=== PATIENT | female | born 1950 | race Caucasian/White ===

== ENCOUNTER → 2016-12-21 | Outpatient (CLI) | payer OTHER | LOC: RAD 03:02 | DX: Z12.31 Encounter for screening mammogram for malignant neoplasm of breast (principal) ==

== ENCOUNTER → 2018-02-11 | Outpatient (CLI) | payer OTHER | LOC: RAD 01:14 | DX: Z12.31 Encounter for screening mammogram for malignant neoplasm of breast (principal) ==

== ENCOUNTER → 2018-07-12 | Outpatient (CLI) | payer OTHER ==
[~2018-07-12] VITALS: Ht 157.5 cm; Wt 72.6 kg
[~2018-07-12] MED LIST: ADDERALL 30 MG30 MG PO; ASPIRIN325 PO; FIBER500 MG PO; LORAZEPAM 0.50.5 M1 PO; ROBITUSSIN100 MG/53 PO; WELLBUTRIN XL150 MG PO
--- NOTE | ~2018-07-12 | P ---
[facility] [place] [address] PROCEDURE REPORT Name: JONES GONZALEZ Room #: REG [facility].#: [id number] Admission: 07/12/18 ������������������ Attend Phys: Derrick Talley Discharge: ������������������ Date of : 48 Report #: [id number] THIS REPORT FOR: //name// CC: Derrick Lira MD DATE OF SERVICE: 07/12/2018 PROCEDURE PERFORMED: Colonoscopy with polypectomies. HISTORY OF PRESENT ILLNESS: The patient is a 68-year-old female with a history of colon polyps, last colonoscopy in 2013. She also has a family history of colon cancer. Denies any symptoms other than mild constipation at times. DESCRIPTION OF PROCEDURE: The risks and benefits of the procedure were explained to the patient, those risks including but not limited to bleeding, perforation and the risk of sedation. She understood these risks and gave informed consent. Sedation was given using propofol per anesthesia. Next, a digital rectal exam was initially performed, which showed small external hemorrhoids, otherwise normal. Next, using a standard Olympus colonoscope, the scope was placed in the patient's anus and advanced under direct vision to the cecum. The overall prep was excellent. In the cecum, there was a 3-mm sessile polyp. This was removed with cold forceps, otherwise normal. The ileocecal valve was normal. The terminal ileum was intubated and normal in appearance. In the ascending colon, there were two sessile polyps. These ranged from 6-8 mm, both removed by snare cautery. In the transverse colon, there were a total of 3 polyps, also removed by snare cautery. These ranged from 6 mm to 1.2 cm. In the descending colon, a 5-mm sessile polyp, also removed by snare cautery. Sigmoid colon, another 5-mm sessile polyp removed by snare cautery. Several diverticula were noted throughout the sigmoid colon. No evidence of inflammation. The rectal mucosa was normal. On retroflexion, small nonbleeding internal hemorrhoids were noted. The scope was then withdrawn and the procedure terminated. The patient tolerated the procedure well. IMPRESSION: 1. Multiple colonic polyps as described above. 2. Sigmoid diverticulosis. 3. Internal and external hemorrhoids. 4. Otherwise, normal colonoscopy. RECOMMENDATIONS: 1. Await biopsy results. 2. Repeat colonoscopy in 3 years due to the number of polyps and family history [address] [address] PROCEDURE REPORT Name: GONZALEZJONES Room #: REG CLKevin Gerardo#: [id number] Admission: 07/12/18 ������������������ Attend Phys: Derrick Talley Discharge: ������������������ Date of : 48 Report #: [id number] of colon cancer. Thank you for allowing me to participate in her care. ��������������������������������������������� ���������������������������������������� By: ��������������������������������������������� [id number] Derrick Cai MD /radha
--- NOTE | 2018-07-16 13:14 | PATH ---
[facility] [place] [address] PATHOLOGY RPT PROCEDURE Name: CARLOSDANA CULLEN Room #: REG [facility] M.R.#: [id number] ������������������ Admission: 07/12/18 ������������������ Date of : 48 Discharge: Report #: [id number] Path Case #: [id number] [facility] Accession Number: [id number] . 01 Material submitted: . PART A: TRANSVERSE POLYP X3 PART B: CECAL POLYP PART C: ASCENDING POLYP X2 PART D: DESCENDING COLON POLYP PART E: SIGMOID COLON POLYP . 01 Clinical history: . Hx of polyps, Hx of colon cancer . 02 Diagnosis: A. Polyps x3, endoscopic biopsy: - All fragments sampled showing hyperplastic polyps. - Negative for dysplasia. . B. Polyp, cecal polyp, endoscopic biopsy: - Tubular adenoma. - Negative for high-grade dysplasia. . C. Polyp x2, ascending colon polyp, endoscopic biopsy: - All fragments showing hyperplastic polyps. - Negative for dysplasia. . D. Polyp, descending colon polyp, endoscopic biopsy: - Hyperplastic polyp. - Negative for dysplasia. . E. Polyp, sigmoid colon polyp, endoscopic biopsy: - Hyperplastic polyp. - Negative for dysplasia. . (IUV:temitope; 07/15/2018) MBR/07/15/2018 . 02 Electronically signed: . Shima Hernandez MD, Pathologist NPI- [id number] . 01 Gross description: . A. Received in formalin labeled "Dana Pickett, transverse polyp," and additionally labeled on the requisition as " x3," is a 1.1 x 0.9 x 0.5 cm polypoid piece of roberto soft tissue. The margin is inked and the specimen is sectioned perpendicular to the margin and entirely submitted [address] [address] PATHOLOGY RPT PROCEDURE Name: DANA PICKETT Room #: REG [facility].#: [id number] ������������������ Admission: 07/12/18 ������������������ Date of : 48 Discharge: Report #: [id number] Path Case #: [id number] in cassette A1 and A2. Additionally received in the same container is a 0.6 x 0.5 x 0.5 cm polypoid piece of roberto soft tissue. The margin is inked and the specimen is sectioned perpendicular to the margin and entirely submitted in cassette A3. Also received in container are multiple fragments of roberto soft tissue measuring 0.6 x 0.4 x 0.1 cm in aggregate dimensions. The specimen is filtered and entirely submitted in cassette A4. . B. Received in formalin labeled "Dana Pickett, cecal polyp," is a single segment of roberto soft tissue measuring 0.4 cm in maximum dimension. The specimen is entirely submitted in cassette B1. . C. Received in formalin labeled "Dana Pickett, ascending colon polyp," and additionally labeled on the requisition as "x2," are 4 segments of roberto soft tissue measuring 2.0 x 1.3 x 0.6 cm in aggregate dimensions and ranging from 0.3 to 0.8 cm in maximum dimension. The specimen is submitted entirely in cassette C1. . D. Received in formalin labeled "Dana Pickett, descending colon polyp," is a 0.7 x 0.5 x 0.5 cm polypoid piece of roberto soft tissue. The margin is inked and the specimen is sectioned perpendicular to the margin and entirely submitted in cassette D1. . E. Received in formalin labeled "Dana Pickett, sigmoid colon polyp," are 2 segments of roberto soft tissue measuring 0.8 x 0.4 x 0.4 cm in aggregate dimensions and ranging from 0.2 to 0.6 cm in maximum dimension. The specimen is submitted entirely in cassette E1. (TSD; 07/12/2018) TOB/TOB . 02 Pathologist provided ICD-10: D12.0, K63.5, Z86.010, Z80.0 . 02 CPT . 336785, 381457, 172652, 405187, 721964 Specimen Comment: A courtesy copy of this report has been sent to Specimen Comment: [phone], , . Specimen Comment: Report sent to , and Performed at: [address] [facility], [place], [place] [id number] MD Zen Hooper MD Phone: [phone] Performed at: [address] [facility] [id number] MD Shima Hernandez MD Phone: [phone]
== END | disposition home or self-care (01) ==
LOC: GI 06:49
DX: K63.5 Polyp of colon (principal); K57.30 Diverticulosis of large intestine without perforation or abscess without bleeding; K64.8 Other hemorrhoids; K64.4 Residual hemorrhoidal skin tags; Z86.010 Personal history of colon polyps; F32.9 Major depressive disorder, single episode, unspecified; F41.9 Anxiety disorder, unspecified; Z90.710 Acquired absence of both cervix and uterus; Z98.890 Other specified postprocedural states; F90.9 Attention-deficit hyperactivity disorder, unspecified type

== ENCOUNTER → 2019-02-24 | Outpatient (CLI) | payer OTHER | LOC: BC 12:08 | DX: Z12.31 Encounter for screening mammogram for malignant neoplasm of breast (principal) ==